=== PATIENT | male | born 1985 | race Caucasian/White ===

== ENCOUNTER 2016-12-30 08:39 | Day surgery (SDC) | payer BC, OTHER ==
[~2016-12-30 08:39] MED LIST: Lactated Ringers 1,000 ML IV SCH; Lidocaine 1%/Sod Bicarbonate in NS 8.4% 1 ML Syringe PRN; Sodium Chloride 0.9% 10 ML Syringe FLUSH PRN
--- NOTE | 2016-12-30 10:14 | PCM.PREANE ---
Preanesthetic Assessment - Anesthesia/Transfusion/Family Hx Anesthesia History: Prior Anesthesia Without Reaction Family History of Anesthesia Reaction: No - Review of Systems General: No Symptoms Pulmonary: No Symptoms, Cough (feels its related to reflux), Other (smoker) Cardiovascular: No Symptoms Gastrointestinal: Other (acid reflux, heartburn) Neurological: No Symptoms Other: Reports: Anxiety - Physical Assessment NPO Status Date: 12/29/16 NPO Status Time: 22:00 Pulse: 63 O2 Sat by Pulse Oximetry: 100 Respiratory Rate: 16 Blood Pressure: 121/68 Temperature: 36.6 C Vital Signs: Last Vital Signs Temp 36.6 C 12/30/16 08:50 Pulse 63 12/30/16 08:50 Resp 16 12/30/16 08:50 BP 121/68 12/30/16 08:50 Pulse Ox 100 12/30/16 08:50 Height: 1.88 m Weight: 68.039 kg ASA Class: 2 Mental Status: Alert & Oriented x3 Airway Class: Mallampati = 2 Dentition: Reports: Normal Dentition Thyro-Mental Finger Breadths: 3 Mouth Opening Finger Breadths: 3 ROM/Head Extension: Full Lungs: Clear to Auscultation, Normal Respiratory Effort Cardiovascular: Regular Rate, Regular Rhythm - Allergies Allergies/Adverse Reactions: Allergies Allergy/AdvReac Type Severity Reaction Status Date / Time No Known Allergies Allergy Verified 12/29/16 15:08 - Blood Blood Available: No Product(s) Available: None - Anesthesia Plan Pre-Op Medication Ordered: None - Acknowledgements Anesthesia Type Planned: MAC Pt an Appropriate Candidate for the Planned Anesthesia: Yes Alternatives and Risks of Anesthesia Discussed w Pt/Guardian: Yes Pt/Guardian Understands and Agrees with Anesthesia Plan: Yes PreAnesthesia Questionnaire HEENT History: Reports: Impaired Vision, Other (See Below) Other HEENT History: eustachian tube dysfunction Cardiovascular History: Reports: Other (See Below) Other Cardiovascular History: chest pain Respiratory History: Reports: Other (See Below) Other Respiratory History: pneumonia Gastrointestinal History: Reports: GERD, Hemorrhoids, Other (See Below) Other Gastrointestinal History: dysphagia Genitourinary History: Reports: None BIOLOGICAL SCIENCE AIDE History: Reports: None Musculoskeletal History: Reports: Other (See Below) Other Musculoskeletal History: R foot injury Neurological History: Reports: None Psychiatric History: Reports: ADD, Anxiety, Depression Endocrine/Metabolic History: Reports: None Hematologic History: Reports: None Immunologic History: Reports: None Oncologic (Cancer) History: Reports: None Dermatologic History: Reports: Other (See Below) Other Dermatologic History: lesion of nose - Past Surgical History Head Surgeries/Procedures: Reports: None HEENT Surgical History: Reports: Other (See Below) Other HEENT Surgeries/Procedures: laryngoscopy GI Surgical History: Reports: Colonoscopy, EGD Endocrine Surgical History: Reports: None - SUBSTANCE USE Smoking Status *Q: Current Every Day Smoker Recreational Drug Use History: No - HOME MEDS Home Medications: Home Meds Dextroamphetamine/Amphetamine [Adderall 10 mg Tablet] 10 mg PO BID 12/29/16 [ History] Nancy 500 mg PO DAILY 12/29/16 [History] Gluc 2KCl/Chondr/Suresh Hy/Hy Ac [Glucosamine & Chondroitin Cap] 1 cap PO DAILY [History] Lactobacillus Acidophilus [Probiotic] 1 cap PO DAILY 12/29/16 [History] Multivitamin [Multivitamins] 1 tab PO DAILY 12/29/16 [History] Omeprazole [Omeprazole] 40 mg PO DAILY 12/29/16 [History] - CURRENT (IN HOUSE) MEDS Current Meds: Current Medications Lactated Ringer's (Ringers, Lactated) 1,000 mls @ 125 mls/hr IV ASDIRECTED LAURA Stop: 12/30/16 23:00 Last Admin: 12/30/16 09:00 Dose: 125 mls/hr Lidocaine/Sodium Bicarbonate (Buffered Lidocaine 1% In Ns 8.4%) 0.25 ml .XX ONETIME PRN PRN Reason: Prior to IV Start Stop: 12/30/16 18:00 Last Admin: 12/30/16 09:00 Dose: 0.25 ml Sodium Chloride (Saline Flush) 10 ml FLUSH ASDIRECTED PRN PRN Reason: Keep Vein Open Stop: 12/30/16 18:00
[2016-12-30] MEDS ORDERED: Midazolam 1 MG/ML 2 ML SDV ONE (10:50)
[2016-12-30] MEDS ORDERED: fentaNYL 100 MCG/2 ML SDV ONE (10:50)
[2016-12-30] MEDS ORDERED: Propofol 200 MG/20 ML SDV ONE (10:50)
--- NOTE | 2016-12-30 10:56 | PCM.OPNOTE ---
- General Post-Op/Procedure Note Date of Surgery/Procedure: 12/30/16 Operative Procedure(s): Esophagogastroduodenoscopy with cold forceps biopsy of the antrum 2 the body of the stomach 2 the GE junction 2 and the proximal esophagus 1 Findings: Mild gastritis Pre Op Diagnosis: GERD with dysphagia Post-Op Diagnosis: Same plus mild gastritis Anesthesia Technique: MAC, Moderate Sedation Primary Surgeon: Chi Cummings Pathology: Esophageal biopsy at 20 cm. GE junction biopsy 2. Body of the stomach biopsy 2 as well in the area of gastritis. 2 antral biopsies. EBL in mLs: 0 Complications: None Condition: Good Free Text/Narrative:: After adequate IV sedation and analgesia was obtained with monitoring a lubricated upper endoscope was inserted through a bite-block into the esophagus without difficulty. The scope was advanced under direct vision to the stomach where air was given. The pylorus was entered into the duodenum. The duodenum was slightly tortuous. The second and first parts were endoscopically normal with no ulcerations or erythema or erosion seen. The antrum was endoscopically normal as well. In the retroflexed view there was slight erythema within the body of the stomach. The fundic and cardiac regions were endoscopically normal. There was no hiatal hernia. The rugal folds were grossly normal. None of these areas contained alfreda erosions or ulcers. I took 2 biopsies of the body of the stomach in the area of mild erythema. 2 random antral biopsies were taken as well. The scope was then withdrawn to the GE junction which was grossly normal. 2 biopsies were taken of this area. There was no strictures or rings seen. The body of the esophagus was grossly normal but because of his history I took a random biopsy in the upper esophagus at about 15-20 cm. Photographs taken for the patient for the record. Air was removed as I finished the procedure which he tolerated well.
--- NOTE | 2016-12-30 11:01 | PCM48HPAN ---
Post Anesthesia Note - EVALUATION WITHIN 48HRS OF ANESTHETIC Vital Signs in Normal Range: Yes Patient Participated in Evaluation: Yes Respiratory Function Stable: Yes Airway Patent: Yes Cardiovascular Function Stable: Yes Hydration Status Stable: Yes Pain Control Satisfactory: Yes Nausea and Vomiting Control Satisfactory: Yes Mental Status Recovered: Yes
[2016-12-30 11:02] VITALS: BP 101/54
== END 2016-12-30 11:35 | disposition home or self-care (01) ==
LOC: JD.SDS 08:39
PROVIDERS: ATTEND Surgery
PROC: 0DB48ZX Excision of Esophagogastric Junction, Via Natural or Artificial Opening Endoscopic, Diagnostic (ICD-10-PCS; principal; 2016-12-30)
PROC: 0DB68ZX Excision of Stomach, Via Natural or Artificial Opening Endoscopic, Diagnostic (ICD-10-PCS; 2016-12-30)
DX: R12 Heartburn (principal); R07.9 Chest pain, unspecified; R13.10 Dysphagia, unspecified; Z87.891 Personal history of nicotine dependence; K31.89 Other diseases of stomach and duodenum
CPT/HCPCS: 43239; 88305; J2250; J3010; J7120; 00740; J2704

== ENCOUNTER 2017-08-11 07:42 | Day surgery (SDC) | payer OTHER ==
[~2017-08-11 07:42] MED LIST changes: +Lidocaine 1%/Sod Bicarbonate in NS 8.4% 1 ML Syringe IDERM PRN; -Lidocaine 1%/Sod Bicarbonate in NS 8.4% 1 ML Syringe PRN
[2017-08-11] MEDS ORDERED: Ondansetron 4 MG/2 ML SDV ONE (07:51)
[2017-08-11] MEDS ORDERED: Midazolam 1 MG/ML 2 ML SDV ONE (07:51)
[2017-08-11] MEDS ORDERED: fentaNYL 100 MCG/2 ML SDV ONE (07:51)
[2017-08-11] MEDS ORDERED: Propofol 200 MG/20 ML SDV ONE (07:51)
[2017-08-11] MEDS ORDERED: Lidocaine 1% 4 ML ONE (07:52)
[2017-08-11] MEDS ORDERED: Lidocaine 1% 30 ML SDV ONE (08:02)
[2017-08-11] MEDS ORDERED: Bupivacaine 0.5% 30 ML SDV ONE (08:02)
--- NOTE | 2017-08-11 08:06 | PCM.PREANE ---
Preanesthetic Assessment - Anesthesia/Transfusion/Family Hx Anesthesia History: Prior Anesthesia Without Reaction Family History of Anesthesia Reaction: No Transfusion History: No Prior Transfusion(s) - Review of Systems General: No Symptoms Pulmonary: No Symptoms Cardiovascular: No Symptoms Gastrointestinal: No Symptoms Neurological: No Symptoms Other: Reports: None - Physical Assessment NPO Status Date: 08/10/17 NPO Status Time: 00:00 Pulse: 60 O2 Sat by Pulse Oximetry: 100 Respiratory Rate: 16 Blood Pressure: 121/78 Temperature: 36.6 C Height: 1.57 m Weight: 68.538 kg ASA Class: 2 Mental Status: Alert & Oriented x3 Airway Class: Mallampati = 1 Dentition: Reports: Implants (front top right side) Thyro-Mental Finger Breadths: 3 Mouth Opening Finger Breadths: 3 ROM/Head Extension: Full Lungs: Clear to Auscultation, Normal Respiratory Effort Cardiovascular: Regular Rate, Regular Rhythm - Allergies Allergies/Adverse Reactions: Allergies Allergy/AdvReac Type Severity Reaction Status Date / Time No Known Allergies Allergy Verified 12/29/16 15:08 - Blood Blood Available: No Product(s) Available: None - Anesthesia Plan Pre-Op Medication Ordered: None - Acknowledgements Anesthesia Type Planned: MAC Pt an Appropriate Candidate for the Planned Anesthesia: Yes Alternatives and Risks of Anesthesia Discussed w Pt/Guardian: Yes Pt/Guardian Understands and Agrees with Anesthesia Plan: Yes PreAnesthesia Questionnaire HEENT History: Reports: Impaired Vision, Other (See Below) Other HEENT History: eustachian tube dysfunction Cardiovascular History: Reports: Other (See Below) Other Cardiovascular History: irregular heartbeat Respiratory History: Reports: Other (See Below) Other Respiratory History: pneumonia Gastrointestinal History: Reports: GERD, Hemorrhoids Other Gastrointestinal History: dysphagia Genitourinary History: Reports: None DRAMA CRITIC History: Reports: None Musculoskeletal History: Reports: Other (See Below) Other Musculoskeletal History: R foot injury Neurological History: Reports: None Psychiatric History: Reports: ADD, Anxiety Endocrine/Metabolic History: Reports: None Hematologic History: Reports: None Immunologic History: Reports: None Oncologic (Cancer) History: Reports: None Dermatologic History: Reports: Other (See Below) Other Dermatologic History: lesion of nose - Past Surgical History HEENT Surgical History: Reports: Oral Surgery, Other (See Below) Other HEENT Surgeries/Procedures: wisdom teeth extraction GI Surgical History: Reports: Colonoscopy, EGD - SUBSTANCE USE Smoking Status *Q: Former Smoker Tobacco Use Within Last Twelve Months: Cigarettes Second Hand Smoke Exposure: Yes Days Per Week of Alcohol Use: 1 Number of Drinks Per Day: 0 Total Drinks Per Week: 0 Recreational Drug Use History: No - HOME MEDS Home Medications: Home Meds Dextroamphetamine/Amphetamine [Adderall 10 mg Tablet] 10 mg PO BID 12/29/16 [ History] Gluc 2KCl/Chondr/Suresh Hy/Hy Ac [Glucosamine & Chondroitin Cap] 1 cap PO DAILY [History] Lactobacillus Acidophilus [Probiotic] 1 cap PO DAILY 12/29/16 [History] Multivitamin [Multivitamins] 1 tab PO DAILY 12/29/16 [History] Omeprazole 40 mg PO DAILY 12/29/16 [History] - CURRENT (IN HOUSE) MEDS Current Meds: Current Medications Lactated Ringer's (Ringers, Lactated) 1,000 mls @ 125 mls/hr IV ASDIRECTED LAURA Lidocaine/Sodium Bicarbonate (Buffered Lidocaine 1% In Ns 8.4%) 0.25 ml IDERM ONETIME PRN PRN Reason: Prior to IV Start Sodium Chloride (Saline Flush) 10 ml FLUSH ASDIRECTED PRN PRN Reason: Keep Vein Open Discontinued Medications Fentanyl (Sublimaze) Confirm Administered Dose 100 mcg .ROUTE .STK-MED ONE Stop: 08/11/17 07:52 Lidocaine HCl (Xylocaine-Mpf 1%) Confirm Administered Dose 4 mls @ as directed .ROUTE .STK-MED ONE Stop: 08/11/17 07:53 Midazolam HCl (Versed 1 Mg/Ml) Confirm Administered Dose 2 mg .ROUTE .STK-MED ONE Stop: 08/11/17 07:52 Ondansetron HCl (Zofran) Confirm Administered Dose 4 mg .ROUTE .STK-MED ONE Stop: 08/11/17 07:52 Propofol (Diprivan 20 Ml) Confirm Administered Dose 200 mg .ROUTE .STK-MED ONE Stop: 08/11/17 07:52
--- NOTE | 2017-08-11 08:51 | PCM.OPNOTE ---
- General Post-Op/Procedure Note Date of Surgery/Procedure: 08/11/17 Operative Procedure(s): 1. Diagnostic anoscopy. 2. 3 column rubber band ligation Findings: 3 column prolapsed internal hemorrhoids uncomplicated Pre Op Diagnosis: Symptomatic bleeding hemorrhoids Post-Op Diagnosis: Same Anesthesia Technique: MAC, Moderate Sedation Primary Surgeon: Chi Cummings Pathology: None EBL in mLs: 0 Complications: None Condition: Good Free Text/Narrative:: After adequate IV sedation and analgesia was obtained with monitoring the patient was placed in the prone jackknife position with his buttocks taped. The perianal region was prepped with Betadine solution. On inspection there were obvious slightly prolapsing 3 column internal hemorrhoids. Digital rectal examination appreciated the hemorrhoids. Sphincter tone was normal. The prostate was normal. Diagnostic anoscopy revealed the 3 column uncomplicated internal hemorrhoids with no fissures or fistulas seen. I applied rubber bands above the dentate line in the left lateral right posterior and right anterior areas. There was minimal bleeding. He tolerated the procedure well.
--- NOTE | 2017-08-11 09:02 | PCM48HPAN ---
Post Anesthesia Note - EVALUATION WITHIN 48HRS OF ANESTHETIC Vital Signs in Normal Range: Yes Patient Participated in Evaluation: Yes Respiratory Function Stable: Yes Airway Patent: Yes Cardiovascular Function Stable: Yes Hydration Status Stable: Yes Pain Control Satisfactory: Yes Nausea and Vomiting Control Satisfactory: Yes Mental Status Recovered: Yes Pulse Rate: 59 SaO2: 100 Resp Rate: 16 Temperature: 36.6 C Blood Pressure: 122/74 - COMMENTS/OBSERVATIONS Free Text/Narrative:: no anesthesia complications noted
[2017-08-11 09:03] VITALS: BP 122/74
== END 2017-08-11 09:46 | disposition home or self-care (01) ==
LOC: JD.SDS 07:42
PROVIDERS: ATTEND Surgery
DX: K64.8 Other hemorrhoids (principal); F41.9 Anxiety disorder, unspecified; Z79.899 Other long term (current) drug therapy; F17.210 Nicotine dependence, cigarettes, uncomplicated
CPT/HCPCS: 46221; J2250; J2405; J3010; J7120; 00902; J2001; J2704

== ENCOUNTER 2022-01-13 14:26 | Emergency (ER) | payer SELFPAY ==
[2022-01-13 14:43] VITALS: BP 150/87; PULSE 87
[2022-01-13 15:56] LABS: ESTIMATED GFR 99 mL/min (>60)
== END 2022-01-13 16:29 | disposition home or self-care (01) ==
LOC: JD.ED 14:26
DX: R07.89 Other chest pain (principal)
CPT/HCPCS: 36415; 71045; 71045-26; 80053; 83735; 84443; 84484; 85025; 86140; 93005; 99285

== ENCOUNTER 2022-01-25 22:20 | Emergency (ER) | payer SELFPAY ==
[2022-01-25 23:00] VITALS: BP 135/80; PULSE 66
== END 2022-01-25 23:49 | disposition home or self-care (01) ==
LOC: JD.ED 22:20
DX: H72.91 Unspecified perforation of tympanic membrane, right ear (principal); F17.210 Nicotine dependence, cigarettes, uncomplicated; Z91.018 Allergy to other foods; Z88.8 Allergy status to other drugs, medicaments and biological substances; Z86.16 Personal history of COVID-19
CPT/HCPCS: 99282

== ENCOUNTER 2022-03-11 23:35 | Emergency (ER) | payer SELFPAY ==
[~2022-03-11 23:35] MED LIST changes: +ALUM HYDROX PO ONE; +Famotidine 20 MG Tab PO ONE; +LIDOCAINE 2% PO ONE; -Lactated Ringers 1,000 ML IV SCH; -Lidocaine 1%/Sod Bicarbonate in NS 8.4% 1 ML Syringe IDERM PRN; +MAG HYDROX PO ONE; +SIMETH PO ONE; -Sodium Chloride 0.9% 10 ML Syringe FLUSH PRN
[2022-03-12] MEDS ORDERED: Famotidine 20 MG Tab ONE (00:45)
[2022-03-12] MEDS ORDERED: Lidocaine 2% Viscous Solution 15 ML UD ONE (00:45)
[2022-03-12] MEDS ORDERED: Aluminum Hydroxide/Magnesium Hydroxide/Simethicone Susp 30 ML Cup ONE (00:46)
[2022-03-12 01:12] LABS: ESTIMATED GFR 79 mL/min (>60)
[2022-03-12 06:53] VITALS: BP 126/69; PULSE 65
== END 2022-03-12 02:12 ==
LOC: JD.ED 23:35
DX: I44.0 Atrioventricular block, first degree (principal)
CPT/HCPCS: 36415; 71045; 80053; 83735; 84484; 85025; 85379; 93005; 99285; A9270

== ENCOUNTER 2022-04-02 14:26 | Emergency (ER) | payer OTHER ==
[2022-04-02 14:42] VITALS: BP 154/83; PULSE 95
[2022-04-02] MEDS ORDERED: Sodium Chloride 0.9% 10 ML Syringe FLUSH PRN (15:26)
== END 2022-04-02 17:03 | disposition home or self-care (01) ==
LOC: JD.ED 14:26
DX: R07.89 Other chest pain (principal); K21.9 Gastro-esophageal reflux disease without esophagitis; Z91.018 Allergy to other foods; Z88.8 Allergy status to other drugs, medicaments and biological substances; Z86.16 Personal history of COVID-19; Z87.891 Personal history of nicotine dependence
CPT/HCPCS: 36415; 70450; 71045; 80053; 83735; 84484; 85025; 85379; 93005; 99285; J3490; 93010; 99284

== ENCOUNTER 2022-04-05 22:59 | Emergency (ER) | payer OTHER ==
[2022-04-05] MEDS ORDERED: Sodium Chloride 0.9% 10 ML Syringe FLUSH PRN (23:19)
[2022-04-06 01:44] VITALS: BP 122/84; PULSE 58
== END 2022-04-06 01:40 | disposition home or self-care (01) ==
LOC: JD.ED 22:59
DX: R07.89 Other chest pain (principal); I10 Essential (primary) hypertension; Z88.8 Allergy status to other drugs, medicaments and biological substances; Z91.018 Allergy to other foods; Z79.899 Other long term (current) drug therapy
CPT/HCPCS: 36415; 71045; 71045-26; 80053; 80306; 84484; 85025; 93005; 99285

== ENCOUNTER 2023-10-08 21:23 | Emergency (ER) | payer MEDICAID ==
[2023-10-09 00:15] VITALS: BP 130/61; PULSE 81
== END 2023-10-09 00:14 | disposition home or self-care (01) ==
LOC: JD.ED 21:23
DX: S02.5XXB Fracture of tooth (traumatic), initial encounter for open fracture (principal); Z91.018 Allergy to other foods; Z88.8 Allergy status to other drugs, medicaments and biological substances; Z79.899 Other long term (current) drug therapy; Z86.16 Personal history of COVID-19; W22.8XXA Striking against or struck by other objects, initial encounter; Y93.89 Activity, other specified; Y99.0 Civilian activity done for income or pay
CPT/HCPCS: 99282

== ENCOUNTER 2024-09-21 06:39 | Day surgery (SDC) | payer BC, MEDICAID ==
[~2024-09-21 06:39] MED LIST changes: -ALUM HYDROX PO ONE; -Famotidine 20 MG Tab PO ONE; -LIDOCAINE 2% PO ONE; -MAG HYDROX PO ONE; -SIMETH PO ONE; +Sodium Chloride 0.9% 10 ML Syringe FLUSH PRN; +Sodium Chloride 0.9% 10 ML Syringe FLUSH SCH
[2024-09-21] MEDS ORDERED: Propofol 200 MG/20 ML SDV ONE ×2 (06:46→07:10)
[2024-09-21] MEDS ORDERED: Lidocaine 1% 6 ML ONE (06:47)
[2024-09-21] MEDS: Lactated Ringers 1,000 ML IV SCH (06:55)
[2024-09-21 08:16] VITALS: BP 113/85; PULSE 56
== END 2024-09-21 07:53 | disposition home or self-care (01) ==
LOC: JD.SDS 06:39
PROVIDERS: ATTEND Surgery
DX: K21.00 Gastro-esophageal reflux disease with esophagitis, without bleeding (principal); R13.10 Dysphagia, unspecified; K29.50 Unspecified chronic gastritis without bleeding; Q43.8 Other specified congenital malformations of intestine; F41.9 Anxiety disorder, unspecified; I10 Essential (primary) hypertension; E78.00 Pure hypercholesterolemia, unspecified; Z79.899 Other long term (current) drug therapy
CPT/HCPCS: 43239; C9777; J2003; J2704; J7120; 00731